=== PATIENT | female | born 1995 | race Caucasian/White ===

== ENCOUNTER 2016-07-28 23:58 | Emergency (ER) | payer OTHER ==
[2016-07-29] MEDS ORDERED: diphenhydrAMINE 50 MG/ML 1 ML VIAL IVP STA (01:25)
[2016-07-29] MEDS ORDERED: FAMOTIDINE 20 MG/2 ML VIAL IV STA (01:25)
[2016-07-29] MEDS ORDERED: methylPREDNISolone SOD SUCCI 125 MG/2 ML VIAL IV STA (01:25)
--- NOTE | 2016-07-29 02:32 | ED ---
General Adult HPI - General Chief complaint: Skin/Abscess/Foreign Body Stated complaint: Hives/FATIMAH Time Seen by Provider: 07/29/16 01:14 Source: patient, RN notes reviewed Mode of arrival: ambulatory Limitations: no limitations - History of Present Illness Initial comments: This is a 21-year-old female who presents with hives and rash that started last night. Patient states she noticed the itching and the bumps on her face right before she went to bed and these have gotten progressively worse. Patient also complains of some shortness of breath. Patient does not know what could've triggered this rash. Patient denies any new medication, new soaps, detergents or anything else new in her routine. Patient does admit to being a smoker. Patient currently has a nexplanon for control. Patient denies any known ALLERGIES. Patient denies any recent fever, chills, chest pain, abdominal pain , nausea/vomiting/diarrhea, back pain, numbness, tingling, hematuria, headache , or visual changes, or any other complaints. - Related Data Previous Rx's Medication Instructions Recorded Famotidine [Pepcid] 40 mg PO HS 3 Days 07/29/16 diphenhydrAMINE [Benadryl] 25 mg PO TID 3 Days 07/29/16 predniSONE [Deltasone] 20 mg PO DAILY 3 Days 07/29/16 Allergies Allergy/AdvReac Type Severity Reaction Status Date / Time No Known Allergies Allergy Verified 07/29/16 00:02 Review of Systems ROS Statement: Those systems with pertinent positive or pertinent negative responses have been documented in the HPI. ROS Other: All systems not noted in ROS Statement are negative. Past Medical History Past Medical History: GERD/Reflux History of Any Multi-Drug Resistant Organisms: None Reported Past Surgical History: Cholecystectomy Past Anesthesia/Blood Transfusion Reactions: No Reported Reaction Past Psychological History: No Psychological Hx Reported Smoking Status: Current every day smoker Past Alcohol Use History: Occasional Past Drug Use History: None Reported - Past Family History Father Family Medical History: Cancer General Exam - General Exam Comments Initial Comments: General: The patient is awake and alert, in no distress, and does not appear acutely ill. Eye: Pupils are equal, round and reactive to light, extra-ocular movements are intact. No nystagmus. There is normal conjunctiva bilaterally. No signs of icterus. Ears: TMs pink and pearly with intact cone of light bilaterally. Normal external ear canals Nose: Nasal turbinates pink and moist Mouth and throat: There are moist mucous membranes and no oral lesions. Neck: The neck is supple, there is no tenderness or JVD. Cardiovascular: There is a regular rate and rhythm. No murmur, rub or gallop is appreciated. Respiratory: Lungs with wheezes present throughout, respirations are non- labored, breath sounds are equal. No stridor, rales, or rhonchi. Musculoskeletal: Normal ROM, no tenderness. Strength 5/5. Sensation intact. Radial Pulses equal bilaterally 2+. Neurological: A&O x 3. CN II-XII intact, There are no obvious motor or sensory deficits. Coordination appears grossly intact. Speech is normal. Skin: There is an urticarial rash to the patient's face and neck. Skin is warm and dry. Psychiatric: Cooperative, appropriate mood & affect, normal judgment. Limitations: no limitations Course Vital Signs 07/29/16 00:00 Temperature 98.4 F Pulse Rate 90 Respiratory 20 Rate Blood Pressure 131/76 O2 Sat by Pulse 100 Oximetry Medical Decision Making - Medical Decision Making This is a 21-year-old female presents with hives and some mild shortness of breath. On physical exam Lungs with wheezes present throughout, respirations are non-labored, breath sounds are equal. No stridor, rales, or rhonchi. There is an urticarial rash to the patient's face and neck. Patient was given a dose of Solu-Medrol, Pepcid and Benadryl in the EC today to this patient's lungs are completely clear to auscultation bilaterally and there is no more wheezing. Patient states that her breathing symptoms had resolved. I discussed the patient will be sent home on a course of Benadryl, Pepcid and prednisone for the next 3 days. I discussed return parameters. Discussed that patient should follow up with PCP in one to 2 days or return to the [facility] for any worsening symptoms or for any further concerns. Patient was receptive to this plan and patient will be discharged home. Disposition Clinical Impression: Allergic reaction, Urticaria Disposition: HOME SELF-CARE Condition: Good Instructions: Urticaria (ED) Additional Instructions: Please use medication as discussed. Please follow-up with family doctor in the next 2 days of symptoms have not improved. Please return to emergency room if the symptoms increase or worsen or for any other concerns. Prescriptions: Famotidine [Pepcid] 40 mg PO HS 3 Days diphenhydrAMINE [Benadryl] 25 mg PO TID 3 Days predniSONE [Deltasone] 20 mg PO DAILY 3 Days Time of Disposition: 02:37
[2016-07-29 02:47] VITALS: BP 109/72; PULSE 74; RESP 16; TEMP 97.9
== END 2016-07-29 02:48 | disposition home or self-care (01) ==
LOC: EC 23:58
DX: T78.40XA Allergy, unspecified, initial encounter (principal); L50.9 Urticaria, unspecified; F17.200 Nicotine dependence, unspecified, uncomplicated
CPT/HCPCS: 99284; 96374; 96375 ×2; J1200; J2930

== ENCOUNTER → 2016-08-07 | Outpatient (CLI) | payer OTHER | END | disposition home or self-care (01) | LOC: LABWHC1 09:58 | PROVIDERS: ATTEND Obstetrics & Gynecology | DX: N91.2 Amenorrhea, unspecified (principal) | CPT/HCPCS: 36415; 84702 ==

== ENCOUNTER 2016-11-25 00:17 | Emergency (ER) | payer OTHER ==
[2016-11-25 00:23] VITALS: BP 128/81; PULSE 81; RESP 18; TEMP 99.1
--- NOTE | 2016-11-25 01:24 | ED ---
ENT HPI - General Chief complaint: ENT Stated complaint: sore throat Time Seen by Provider: 11/25/16 00:50 Source: patient, RN notes reviewed Mode of arrival: ambulatory Limitations: no limitations - History of Present Illness Initial comments: patient is a 21-year-old female presents to the emergency room for evaluation of throat pain. Patient states throat pain began a few hours ago. patient states she took [id number] cold medicine with no relief of symptoms. Patient states it hurts when she swallows. patient has any fevers or chills. Patient's headache or dizziness. Patient denies cough or congestion. Patient denies sick contacts. - Related Data Home Medications Medication Instructions Recorded Confirmed No Known Home Medications [No 11/25/16 11/25/16 Known Home Medications] Allergies Allergy/AdvReac Type Severity Reaction Status Date / Time No Known Allergies Allergy Verified 11/25/16 00:23 Review of Systems ROS Statement: Those systems with pertinent positive or pertinent negative responses have been documented in the HPI. ROS Other: All systems not noted in ROS Statement are negative. Past Medical History Past Medical History: GERD/Reflux History of Any Multi-Drug Resistant Organisms: None Reported Past Surgical History: Cholecystectomy Past Anesthesia/Blood Transfusion Reactions: No Reported Reaction Past Psychological History: No Psychological Hx Reported Smoking Status: Former smoker Past Alcohol Use History: Rare Past Drug Use History: None Reported - Past Family History Father Family Medical History: Cancer General Exam - General Exam Comments Initial Comments: Sitting in exam room, no acute distress. Limitations: no limitations General appearance: alert, in no apparent distress Head exam: Present: atraumatic, normocephalic, normal inspection Eye exam: Present: normal appearance Expanded Mouth exam: Present: normal external inspection Teeth exam: Present: normal inspection Throat exam: tonsillar erythema Neck exam: Present: normal inspection Respiratory exam: Present: normal lung sounds bilaterally. Absent: respiratory distress Cardiovascular Exam: Present: regular rate, normal rhythm, normal heart sounds Extremities exam: Present: normal inspection Back exam: Present: normal inspection Neurological exam: Present: alert, oriented X3, CN II-XII intact, normal gait Psychiatric exam: Present: normal affect, normal mood Skin exam: Present: warm, dry, intact, normal color. Absent: rash Course Vital Signs 11/25/16 00:20 Temperature 99.1 F Pulse Rate 81 Respiratory 18 Rate Blood Pressure 128/81 O2 Sat by Pulse 98 Oximetry Medical Decision Making - Medical Decision Making Patient is a 21-year-old female presents emergency room for violation of throat pain. Rapid strep negative. Patient's symptoms viral pharyngitis. Advised patient take Tylenol or Motrin at home and take [id number] medications. Patient states she understands everything that was discussed with her. Return parameters discussed. Discussed with Dr. Altman. - Lab Data Lab Results 11/25/16 Range/Units 00:25 Group A Strep Rapid Negative (Negative) Disposition Clinical Impression: Acute viral pharyngitis Disposition: HOME SELF-CARE Condition: Good Instructions: Pharyngitis (ED) Additional Instructions: Take Tylenol or Motrin as needed for pain. Saltwater gargles. Please follow up with primary care provider in 1-2 days. If any new symptom arises or symptoms worsen, return to ER as soon as possible. Referrals: Sami Foster DO [Primary Care Provider] - 1-2 days Time of Disposition: 01:25
== END 2016-11-25 01:46 | disposition home or self-care (01) ==
LOC: EC 00:17
DX: J02.8 Acute pharyngitis due to other specified organisms (principal); Z87.891 Personal history of nicotine dependence
CPT/HCPCS: 87081; 87430; 99282

== ENCOUNTER 2017-01-25 04:59 | Emergency (ER) | payer OTHER ==
--- NOTE | 2017-01-25 05:09 | ED ---
General Adult HPI - General Source: RN notes reviewed <Paul Taylor - Last Filed: 01/25/17 05:45> <Paul Massey - Last Filed: 01/25/17 08:05> - General Stated complaint: abd pain Time Seen by Provider: 01/25/17 05:00 - History of Present Illness Initial comments: This is a 21-year-old female presents emergency Department complaining of vaginal bleeding. Patient states she's had a change in her control but 3 months ago. Patient states for about 2 months she didn't have any menstruation. She states since then she has had occasional times when she has sudden onset of bleeding and then it subsides. Patient states this evening she had sexual intercourse and shortly thereafter she started having some pelvic pain and shortly thereafter she had vaginal bleeding. Patient states the bleeding has almost completely subsided at this point and the pain is gotten better but hurts more on the left side. Patient denies any fever or chills. Patient states she has not seen her OB since the change in control (Paul Taylor) - Related Data Home Medications Medication Instructions Recorded Confirmed Aspirin/Acetaminophen/Caffeine 1 tab PO Q12HR 01/25/17 01/25/17 [Excedrin Migraine Caplet] Etonogestrel/Ethinyl Estradiol 1 applic IU DAILY 01/25/17 01/25/17 [Nuvaring Vaginal Ring] Allergies Allergy/AdvReac Type Severity Reaction Status Date / Time No Known Allergies Allergy Verified 01/25/17 05:07 Review of Systems ROS Other: All systems not noted in ROS Statement are negative. <Paul Taylor - Last Filed: 01/25/17 05:45> ROS Other: All systems not noted in ROS Statement are negative. <Paul Massey - Last Filed: 01/25/17 08:05> ROS Statement: Those systems with pertinent positive or pertinent negative responses have been documented in the HPI. Past Medical History Past Medical History: GERD/Reflux History of Any Multi-Drug Resistant Organisms: None Reported Past Surgical History: Cholecystectomy Past Anesthesia/Blood Transfusion Reactions: No Reported Reaction Past Psychological History: No Psychological Hx Reported Smoking Status: Former smoker Past Alcohol Use History: Rare Past Drug Use History: None Reported - Past Family History Father Family Medical History: Cancer <Paul Taylor - Last Filed: 01/25/17 05:45> General Exam <Paul Taylor - Last Filed: 01/25/17 05:45> <Paul Massey - Last Filed: 01/25/17 08:05> - General Exam Comments Initial Comments: GENERAL Patient is well-developed and well-nourished. Patient is in mild distress. EYES Patient's pupils are equal and round. Extraocular motion is intact Abdominal pain Patient some mild tenderness on the floor quadrant SKIN Unremarkable NEURO The patient is alert and oriented 3 PYSCH Patient has normal interpersonal interactions. Genitalia On external exam there was no trauma noted. On speculum exam patient has some scant blood in the vaginal vault but no active bleeding and no trauma noted. ( Paul Taylor) Medical Decision Making <Paul Taylor - Last Filed: 01/25/17 05:45> <Paul Massey - Last Filed: 01/25/17 08:05> - Medical Decision Making Dr. Massey will be taking over the care of the patient at 7 AM (Paul Taylor ) - Lab Data Lab Results 01/25/17 Range/Units 05:42 Urine Color Yellow Urine Appearance Clear (Clear) Urine pH 6.0 (5.0-8.0) Ur Specific [place] 1.024 (1.001-1.035) Urine Protein Trace H (Negative) Urine Glucose (UA) Negative (Negative) Urine Ketones Negative (Negative) Urine Blood Small H (Negative) Urine Nitrite Negative (Negative) Urine Bilirubin Negative (Negative) Urine Urobilinogen 2.0 (<2.0) mg/dL Ur Leukocyte Esterase Trace H (Negative) Urine RBC 6 H (0-5) /hpf Urine WBC 6 H (0-5) /hpf Ur Squamous Epith Cells 2 (0-4) /hpf Urine Mucus Many H (None) /hpf Disposition <Paul Taylor - Last Filed: 01/25/17 05:45> <Paul Massey - Last Filed: 01/25/17 08:05> Clinical Impression: Dysfunctional uterine bleeding Disposition: HOME SELF-CARE Condition: Good Instructions: Menstruation (ED) Referrals: Sami Foster DO [Primary Care Provider] - 1-2 days
[2017-01-25] MEDS ORDERED: KETOROLAC 60 MG/2 ML VIAL IM STA (05:30)
[2017-01-25] MEDS ORDERED: ACETAMINOPHEN TAB 500 MG TAB PO STA (05:30)
[2017-01-25 05:58] LABS: Appearance,Urine Clear (Clear); Bilirubin,Urine Negative (Negative); Glucose,Urine (UA) Negative (Negative); Ketones,Urine Negative (Negative); Leukocyte Esterase,Urine Trace (Negative); Mucus,Urine Many /hpf; Nitrite,Urine Negative (Negative); Particle Count 4743; Protein,Urine Trace (Negative); RBC,Urine 6 /hpf (0-5); Specific Gravity,Urine 1.024 (1.001-1.035); Squamous Epithelial Cell,Urine 2 /hpf (0-4); UA Billing (MACRO vs. MICRO) MICRO; WBC,Urine 6 /hpf (0-5)
--- NOTE | 2017-01-25 07:05 | US ---
EXAM: US Pelvis Complete, Transvaginal CLINICAL HISTORY: Cramping and spotting. Patient has a Nuva ring. TECHNIQUE: Real-time transvaginal pelvic ultrasound (complete) with image documentation. Transvaginal imaging was used for better evaluation of the endometrium and adnexa. COMPARISON: No relevant prior studies available. FINDINGS: Uterus/cervix: The uterus is anteverted measuring 9.0 x 5.8 x 5.0 cm. The endometrium measures up to 5 mm. No myometrial mass. Right ovary: The right ovary measures 1.6 x 1.6 x 1.1 cm. Left ovary: The left ovary measures 2.1 x 2.0 x 1.2 cm. Free fluid: No free fluid within the pelvis. IMPRESSION: No acute findings.
[2017-01-25 07:22] VITALS: RESP 18
[2017-01-25 08:18] VITALS: BP 111/62; PULSE 70; TEMP 98.2
== END 2017-01-25 08:17 | disposition home or self-care (01) ==
LOC: EC 04:59
DX: N93.8 Other specified abnormal uterine and vaginal bleeding (principal); Z87.891 Personal history of nicotine dependence; Z79.3 Long term (current) use of hormonal contraceptives; Z79.82 Long term (current) use of aspirin; Z79.899 Other long term (current) drug therapy
CPT/HCPCS: 81001; 93975; 76830; 99284; 96372; J1885

== ENCOUNTER 2017-03-16 18:04 | Emergency (ER) | payer OTHER ==
[2017-03-16] MEDS ORDERED: SODIUM CHLORIDE 0.9% 500 ML IV STA (18:14)
[2017-03-16] MEDS ORDERED: SODIUM CHLORIDE 0.9% 1,000 ML IV STA (18:14)
[2017-03-16] MEDS ORDERED: ONDANSETRON 4 MG/2 ML VIAL IVP STA ×2 (18:14→19:32)
[2017-03-16] MEDS ORDERED: FAMOTIDINE 20 MG/2 ML VIAL IV STA (18:14)
--- NOTE | 2017-03-16 18:17 | ED ---
Nausea/Vomiting/Diarrhea HPI - General Chief complaint: Nausea/Vomiting/Diarrhea Stated complaint: vomiting Time Seen by Provider: 03/16/17 18:10 Source: patient, RN notes reviewed Mode of arrival: ambulatory Limitations: no limitations - History of Present Illness Initial comments: 22-year-old female presents emergency Department chief complaint of nausea vomiting that started yesterday. Patient states she felt like she has some abdominal cramping which return to her stomach feels upset. Patient states she' s been vomiting on and off since yesterday. She denies any fever, chills, night sweats. Patient states that she primarily has epigastric pain this time. She does admit to a prior cholecystectomy proximally 3 years ago does not remember surgeon name. Patient denies any sick contacts with similar symptoms. Denies any dysuria, hematuria increased urination. Denies any flank pain. She has no chest pain or shortness of breath no headache or dizziness. - Related Data Previous Rx's Medication Instructions Recorded Acetaminophen-Codeine 300-30mg 1 tab PO Q4H PRN #10 tablet 03/16/17 [Tylenol #3] Ondansetron Odt [Zofran Odt] 4 mg PO Q8HR PRN #10 tab 03/16/17 Allergies Allergy/AdvReac Type Severity Reaction Status Date / Time No Known Allergies Allergy Verified 03/16/17 18:15 Review of Systems ROS Statement: Those systems with pertinent positive or pertinent negative responses have been documented in the HPI. ROS Other: All systems not noted in ROS Statement are negative. Past Medical History Past Medical History: GERD/Reflux History of Any Multi-Drug Resistant Organisms: None Reported Past Surgical History: Cholecystectomy Past Anesthesia/Blood Transfusion Reactions: No Reported Reaction Past Psychological History: No Psychological Hx Reported Smoking Status: Current every day smoker Past Alcohol Use History: Occasional Past Drug Use History: Marijuana - Past Family History Father Family Medical History: Cancer General Exam Limitations: no limitations General appearance: alert, in no apparent distress ENT exam: Present: normal oropharynx, mucous membranes moist Neck exam: Present: normal inspection. Absent: tenderness, meningismus, lymphadenopathy Respiratory exam: Present: normal lung sounds bilaterally. Absent: respiratory distress, wheezes, rales, rhonchi, stridor Cardiovascular Exam: Present: regular rate, normal rhythm, normal heart sounds. Absent: systolic murmur, diastolic murmur, rubs, gallop, clicks GI/Abdominal exam: Present: soft, tenderness (Mild epigastric), normal bowel sounds. Absent: distended, guarding, rebound, rigid Back exam: Absent: CVA tenderness (R), CVA tenderness (L) Skin exam: Present: warm, dry, intact, normal color. Absent: rash Course Vital Signs 03/16/17 18:07 Temperature 98.5 F Pulse Rate 111 H Respiratory 20 Rate Blood Pressure 116/69 O2 Sat by Pulse 98 Oximetry Medical Decision Making - Medical Decision Making 22-year-old female presents emergency department nausea vomiting mild abdominal cramping. Patient whether does reveal mild elevation of her lipase. Patient does have some epigastric and midabdominal tenderness. Patient has mild pancreatitis at this time. She's had a prior cholecystectomy of LFTs are within normal limits. Patient is improved after Zofran and IV fluids. Patient be discharged on Zofran advised to stick to clear liquid diet and increase oral intake as tolerated after 24 hours. Return parameters were discussed. - Lab Data Result diagrams: 03/16/17 18:32 03/16/17 18:32 Lab Results 03/16/17 03/16/17 03/16/17 Range/Units 18:32 18:32 18:32 WBC 9.2 (3.8-10.6) k/uL RBC 5.30 (3.80-5.40) m/uL Hgb 15.6 (11.4-16.0) gm/dL Hct 47.5 H (34.0-46.0) % MCV 89.6 (80.0-100.0) fL MCH 29.3 (25.0-35.0) pg MCHC 32.8 (31.0-37.0) g/dL RDW 14.1 (11.5-15.5) % Plt Count 236 (150-450) k/uL Neutrophils % 82 % Lymphocytes % 11 % Monocytes % 4 % Eosinophils % 2 % Basophils % 0 % Neutrophils # 7.5 (1.3-7.7) k/uL Lymphocytes # 1.0 (1.0-4.8) k/uL Monocytes # 0.4 (0-1.0) k/uL Eosinophils # 0.2 (0-0.7) k/uL Basophils # 0.0 (0-0.2) k/uL Sodium 139 (137-145) mmol/L Potassium 3.9 (3.5-5.1) mmol/L Chloride 105 (98-107) mmol/L Carbon Dioxide 22 (22-30) mmol/L Anion Gap 12 mmol/L BUN 9 (7-17) mg/dL Creatinine 0.75 (0.52-1.04) mg/dL Est GFR (MDRD) Af Amer >60 (>60 ml/min/1.73 sqM) Est GFR (MDRD) Non-Af >60 (>60 ml/min/1.73 sqM) Glucose 87 (74-99) mg/dL Calcium 9.2 (8.4-10.2) mg/dL Total Bilirubin 0.6 (0.2-1.3) mg/dL AST 14 (14-36) U/L ALT 33 (9-52) U/L Alkaline Phosphatase 51 (38-126) U/L Total Protein 7.9 (6.3-8.2) g/dL Albumin 4.8 (3.5-5.0) g/dL Amylase 47 (30-110) U/L Lipase 412 H (23-300) U/L Urine Color Urine Appearance (Clear) Urine pH (5.0-8.0) Ur Specific [place] (1.001-1.035) Urine Protein (Negative) Urine Glucose (UA) (Negative) Urine Ketones (Negative) Urine Blood (Negative) Urine Nitrite (Negative) Urine Bilirubin (Negative) Urine Urobilinogen (<2.0) mg/dL Ur Leukocyte Esterase (Negative) Urine RBC (0-5) /hpf Urine WBC (0-5) /hpf Ur Squamous Epith Cells (0-4) /hpf Urine Bacteria (None) /hpf Urine Mucus (None) /hpf Urine HCG, Qual Not Detected (Not Detectd) 03/16/17 Range/Units 18:32 WBC (3.8-10.6) k/uL RBC (3.80-5.40) m/uL Hgb (11.4-16.0) gm/dL Hct (34.0-46.0) % MCV (80.0-100.0) fL MCH (25.0-35.0) pg MCHC (31.0-37.0) g/dL RDW (11.5-15.5) % Plt Count (150-450) k/uL Neutrophils % % Lymphocytes % % Monocytes % % Eosinophils % % Basophils % % Neutrophils # (1.3-7.7) k/uL Lymphocytes # (1.0-4.8) k/uL Monocytes # (0-1.0) k/uL Eosinophils # (0-0.7) k/uL Basophils # (0-0.2) k/uL Sodium (137-145) mmol/L Potassium (3.5-5.1) mmol/L Chloride (98-107) mmol/L Carbon Dioxide (22-30) mmol/L Anion Gap mmol/L BUN (7-17) mg/dL Creatinine (0.52-1.04) mg/dL Est GFR (MDRD) Af Amer (>60 ml/min/1.73 sqM) Est GFR (MDRD) Non-Af (>60 ml/min/1.73 sqM) Glucose (74-99) mg/dL Calcium (8.4-10.2) mg/dL Total Bilirubin (0.2-1.3) mg/dL AST (14-36) U/L ALT (9-52) U/L Alkaline Phosphatase (38-126) U/L Total Protein (6.3-8.2) g/dL Albumin (3.5-5.0) g/dL Amylase (30-110) U/L Lipase (23-300) U/L Urine Color Yellow Urine Appearance Cloudy H (Clear) Urine pH 7.0 (5.0-8.0) Ur Specific [place] 1.008 (1.001-1.035) Urine Protein Negative (Negative) Urine Glucose (UA) Negative (Negative) Urine Ketones Negative (Negative) Urine Blood Negative (Negative) Urine Nitrite Negative (Negative) Urine Bilirubin Negative (Negative) Urine Urobilinogen <2.0 (<2.0) mg/dL Ur Leukocyte Esterase Moderate H (Negative) Urine RBC 1 (0-5) /hpf Urine WBC 3 (0-5) /hpf Ur Squamous Epith Cells 12 H (0-4) /hpf Urine Bacteria Occasional H (None) /hpf Urine Mucus Rare H (None) /hpf Urine HCG, Qual (Not Detectd) Disposition Clinical Impression: Nausea & vomiting, Pancreatitis, acute Disposition: HOME SELF-CARE Condition: Stable Instructions: Acute Nausea and Vomiting (ED) Additional Instructions: Please return to the Emergency Department if symptoms worsen or any other concerns. Prescriptions: Acetaminophen-Codeine 300-30mg [Tylenol #3] 1 tab PO Q4H PRN #10 tablet PRN Reason: pain Ondansetron Odt [Zofran Odt] 4 mg PO Q8HR PRN #10 tab PRN Reason: Nausea Referrals: Sami Foster DO [Primary Care Provider] - 1-2 days Time of Disposition: 19:30
[2017-03-16 18:55] LABS: Basophils % (A) 0 %; CH 30.7; CHCM 34.4; Eosinophils # (A) 0.2 k/uL (0-0.7); Eosinophils % (A) 2 %; HCT 47.5 % (34.0-46.0); HDW 2.18; HGB 15.6 gm/dL (11.4-16.0); Luc # (Auto) 0.08; Luc % (Auto) 1; Lymphocytes % (A) 11 %; MCH 29.3 pg (25.0-35.0); MCHC 32.8 g/dL (31.0-37.0); MCV 89.6 fL (80.0-100.0); Mean Platelet Volume 7.5; Monocytes # (A) 0.4 k/uL (0-1.0); Monocytes % (A) 4 %; Neutrophils # (A) 7.5 k/uL (1.3-7.7); Neutrophils % (A) 82 %; RDW 14.1 % (11.5-15.5); WBC 9.2 k/uL (3.8-10.6)
[2017-03-16 19:01] LABS: Appearance,Urine Cloudy (Clear); Bacteria,Urine Occasional /hpf; Bilirubin,Urine Negative (Negative); Glucose,Urine (UA) Negative (Negative); Ketones,Urine Negative (Negative); Leukocyte Esterase,Urine Moderate (Negative); Mucus,Urine Rare /hpf; Nitrite,Urine Negative (Negative); Particle Count 3454; Protein,Urine Negative (Negative); RBC,Urine 1 /hpf (0-5); Specific Gravity,Urine 1.008 (1.001-1.035); Squamous Epithelial Cell,Urine 12 /hpf (0-4); UA Billing (MACRO vs. MICRO) MICRO; Urobilinogen,Urine <2.0 mg/dL (<2.0); WBC,Urine 3 /hpf (0-5)
[2017-03-16 19:08] LABS: ALT 33 U/L (9-52); AST 14 U/L (14-36); Alkaline Phosphatase 51 U/L (38-126); Amylase 47 U/L (30-110); Anion Gap 12 mmol/L; Blood Urea Nitrogen 9 mg/dL (7-17); Calcium 9.2 mg/dL (8.4-10.2); Carbon Dioxide 22 mmol/L (22-30); Chloride 105 mmol/L (98-107); Glucose 87 mg/dL (74-99); Non-African American GFR(MDRD) >60 (>60 ml/min/1.73 sqM); Potassium 3.9 mmol/L (3.5-5.1); Sodium 139 mmol/L (137-145); Total Bilirubin 0.6 mg/dL (0.2-1.3); Total Protein 7.9 g/dL (6.3-8.2)
--- NOTE | 2017-03-16 19:23 | XR ---
Abdomen HISTORY: Abdomen pain View of the abdomen on 2 images correlated to previous exam 05/09/2014 Pneumoperitoneum has resolved. Lung bases are clear. Surgical clips present in the right upper quadra nt. No bowel obstruction. No pathologic calcification evident. IMPRESSION: Postop changes.
[2017-03-16 19:38] VITALS: BP 115/57; PULSE 80; RESP 15; TEMP 98.9
== END 2017-03-16 19:42 | disposition home or self-care (01) ==
LOC: EC 18:04
DX: K85.90 Acute pancreatitis without necrosis or infection, unspecified (principal); F17.200 Nicotine dependence, unspecified, uncomplicated; Z90.49 Acquired absence of other specified parts of digestive tract
CPT/HCPCS: 36415; 80053; 82150; 83690; 85025; 81001; 81025; 74000; 99284; 96374; 96375; 96376; 96361; J2405

== ENCOUNTER 2017-08-19 12:48 | Emergency (ER) | payer OTHER ==
[2017-08-19 12:51] VITALS: BP 127/69; PULSE 107; RESP 18; TEMP 97.5
--- NOTE | 2017-08-19 14:50 | ED ---
General Adult HPI - General Chief complaint: Wound/Laceration Stated complaint: Lac on Heel Time Seen by Provider: 08/19/17 14:02 Source: patient, RN notes reviewed Mode of arrival: wheelchair Limitations: no limitations - History of Present Illness Initial comments: Patient's a 22-year-old female who presents emergency room today with chief complaint of laceration to the back of the left heel. She states she was kicking some snow and ice off of her car when her foot got caught shoe came off causing a laceration to the back of the left heel. She states her tetanus is up -to-date. She denies any other complaints or symptoms. Patient denies any recent fever, chills, shortness of breath, chest pain, back pain, abdominal pain , nausea or vomiting, numbness or tingling, headaches or visual changes, or any other complaints. - Related Data Previous Rx's Medication Instructions Recorded Acetaminophen-Codeine 300-30mg 1 tab PO Q4H PRN #10 tablet 03/16/17 [Tylenol #3] Ondansetron Odt [Zofran Odt] 4 mg PO Q8HR PRN #10 tab 03/16/17 Allergies Allergy/AdvReac Type Severity Reaction Status Date / Time No Known Allergies Allergy Verified 08/19/17 12:51 Review of Systems ROS Statement: Those systems with pertinent positive or pertinent negative responses have been documented in the HPI. ROS Other: All systems not noted in ROS Statement are negative. Past Medical History Past Medical History: GERD/Reflux History of Any Multi-Drug Resistant Organisms: None Reported Past Surgical History: Cholecystectomy Past Anesthesia/Blood Transfusion Reactions: No Reported Reaction Past Psychological History: No Psychological Hx Reported Smoking Status: Current every day smoker Past Alcohol Use History: Occasional Past Drug Use History: Marijuana - Past Family History Father Family Medical History: Cancer General Exam - General Exam Comments Initial Comments: General: The patient is awake and alert, in no distress, and does not appear acutely ill. Neck: The neck is supple, there is no tenderness or JVD. Cardiovascular: There is a regular rate and rhythm. No murmur, rub or gallop is appreciated. Respiratory: Lungs are clear to auscultation, respirations are non-labored, breath sounds are equal. No wheezes, stridor, rales, or rhonchi. Musculoskeletal: Full range motion. Sensation intact with pulses equal bilaterally 2+ per strength is 5/5. Neurological: A&O x 3. CN II-XII intact, There are no obvious motor or sensory deficits. Coordination appears grossly intact. Speech is normal. Skin: Laceration to the posterior aspect of the left heel measures approximately 1 cm in total length. No deep tissue involvement. Psychiatric: Normal mood and affect. Limitations: no limitations Course Vital Signs 08/19/17 12:48 Temperature 97.5 F L Pulse Rate 107 H Respiratory 18 Rate Blood Pressure 127/69 O2 Sat by Pulse 100 Oximetry Procedures - Procedures Initial comment: 1 cm linear laceration running horizontally to the posterior aspect of the left heel. The skin was anesthetized with 1% lidocaine. The laceration was then cleansed with and irrigated with normal saline. The wound was inspected, and there was no evidence of injury to deep structures. No foreign body was noted in the wound. A total of 2skin skin sutures were placed utilizing 3-0 nylon. Medical Decision Making - Medical Decision Making Patient's laceration was prepped and cleaned here in the emergency room 2 sutures placed. Patient's tetanus up-to-date. Will be discharged home advised return for any other concerns. Disposition Clinical Impression: Laceration Disposition: HOME SELF-CARE Condition: Good Instructions: Laceration (ED) Additional Instructions: Please return to the emergency room in 8-10 days to have sutures removed. Please watch for any signs of infection which may include increased pain, swelling, redness, fever or chills. Please return to emergency room for any signs of infection do occur. Please use clean soap and water over the area to prevent scabbing over your stitches. Please leave wound covered for the first 24-48 hours and then leave wound open to air. Please return to the emergency room for any other concerns. Referrals: Sami Foster DO [Primary Care Provider] - 1-2 days Time of Disposition: 14:49
== END 2017-08-19 14:57 | disposition home or self-care (01) ==
LOC: EC 12:48
DX: S91.312A Laceration without foreign body, left foot, initial encounter (principal); F17.200 Nicotine dependence, unspecified, uncomplicated; W22.8XXA Striking against or struck by other objects, initial encounter; Y93.89 Activity, other specified; Y92.89 Other specified places as the place of occurrence of the external cause
CPT/HCPCS: 12001; 99282

== ENCOUNTER 2021-10-27 18:07 | Emergency (ER) | payer OTHER ==
[2021-10-27] MEDS ORDERED: ACETAMINOPHEN TAB 500 MG TAB PO STA ×2 (19:03→19:42)
[2021-10-27] MEDS ORDERED: AMOXIC-POT CLAV 875-125MG 1 EACH TAB PO STA ×2 (19:04→19:42)
--- NOTE | 2021-10-27 20:26 | ED ---
Animal Bite HPI - General Chief Complaint: Animal Bite Stated Complaint: Rt Toe Injury Time Seen by Provider: 10/27/21 19:06 Source: patient, RN notes reviewed Mode of arrival: wheelchair Limitations: no limitations - History of Present Illness Initial Comments: This patient presents immersed back complaining of pain to her right great toe. Patient states that she went to kick a soccer ball when she is playing with her dog. Dog missed the ball and ended up biting her right great toe. She has a very superficial abrasion to the dorsum of the toe. Patient also has a contusion with ecchymosis. Patient complaining of pain to the area which is exacerbated by palpation and movement. Patient is able to ambulate. Patient has no immunosuppression. Up-to-date on immunizations. No headache, no fever or chills, no changes in vision or hearing, no sore throat or difficulty with speech, no neck pain, no chest pain or shortness of breath, no abdominal pain, no nausea or vomiting, no changes in urination or bowel movements, no numbness or tingling, no skin rashes or lesions. MD Complaint: animal bite - Related Data Previous Rx's Medication Instructions Recorded Acetaminophen-Codeine 300-30mg 1 tab PO Q4H PRN #10 tablet 03/16/17 [Tylenol #3] Ondansetron Odt [Zofran Odt] 4 mg PO Q8HR PRN #10 tab 03/16/17 Acetaminophen [Tylenol] 500 mg PO Q4-6H PRN #24 tab 10/27/21 Amoxicillin/Potassium Clav 1 each PO Q12HR #14 tab 10/27/21 [Augmentin 875-125 Tablet] Allergies Allergy/AdvReac Type Severity Reaction Status Date / Time No Known Allergies Allergy Verified 10/27/21 18:41 Review of Systems ROS Statement: Those systems with pertinent positive or pertinent negative responses have been documented in the HPI. ROS Other: All systems not noted in ROS Statement are negative. Past Medical History Past Medical History: GERD/Reflux History of Any Multi-Drug Resistant Organisms: None Reported Past Surgical History: Cholecystectomy Past Anesthesia/Blood Transfusion Reactions: No Reported Reaction Past Psychological History: No Psychological Hx Reported Smoking Status: Current every day smoker Past Alcohol Use History: Occasional Past Drug Use History: Marijuana - Past Family History Father Family Medical History: Cancer General Exam Limitations: no limitations General appearance: alert, in no apparent distress Head exam: Present: atraumatic, normocephalic, normal inspection Eye exam: Present: normal appearance, PERRL, EOMI. Absent: scleral icterus, conjunctival injection, periorbital swelling ENT exam: Present: normal exam, normal oropharynx, mucous membranes moist, TM's normal bilaterally, normal external ear exam. Absent: mucous membranes dry Neck exam: Present: normal inspection, full ROM. Absent: tenderness, meningismus, lymphadenopathy Respiratory exam: Present: normal lung sounds bilaterally. Absent: respiratory distress, wheezes, rales, rhonchi, stridor Cardiovascular Exam: Present: regular rate, normal rhythm, normal heart sounds. Absent: systolic murmur, diastolic murmur, rubs, gallop, clicks GI/Abdominal exam: Present: soft, normal bowel sounds. Absent: distended, tenderness, guarding, rebound, rigid Extremities exam: Present: normal inspection, full ROM, tenderness (Patient has tenderness to the dorsum of the right great toe. There is overlying ecchymosis. No crepitus. Essentially full range of motion with discomfort.), normal capillary refill, other (No evidence of foreign body or infectious process. This is a very superficial abrasion affecting only the epidermis. However there was minimal bleeding which is now halted.). Absent: pedal edema, joint swelling, calf tenderness Back exam: Present: normal inspection Neurological exam: Present: alert, oriented X3, CN II-XII intact Psychiatric exam: Present: normal affect, normal mood Skin exam: Present: warm, dry, intact, normal color. Absent: rash Course Vital Signs 10/27/21 18:38 Temperature 98.1 F Pulse Rate 99 Respiratory 16 Rate Blood Pressure 108/64 O2 Sat by Pulse 98 Oximetry Procedures - Smoking Cessation Time Spent Discussing Smoking Cessation w/Patient (Minutes): 5 Patient Acknowledges Need for Cessation: Yes Disposition Clinical Impression: Abrasion, right great toe, initial encounter, Contusion of great toe, right, Dog bite, Cigarette smoker Narrative: Dog bite, right great toe, superficial Disposition: HOME SELF-CARE Condition: Good Instructions (If sedation given, give patient instructions): Animal Bite (ED), Abrasion (ED), Foot Contusion (ED), How to Stop Smoking (ED) Additional Instructions: Make sure you CIGARETTE SMOKING. TAKE TYLENOL DIRECTED ON THE [id number] BOTTLE FOR PAIN CONTROL. ELEVATE THE FOOT. WASH THE AREA DAILY WITH WARM SOAP AND WATER. TAKE THE ANTIBIOTICS DIRECTED. WITH A BAND- AID. CONTACT YOUR ELECTRIC WELL LOGGING OPERATOR FOR FURTHER GUIDANCE. YOU CAN GET THE X-RAY IF NEEDED DISCUSSED. HOWEVER THIS IS SOMEWHAT OF RADIATION EXPOSURE. Follow-up with your regular physician as directed. Return to the ER immediately if any symptoms worsen, new symptoms arise, or any other problems develop. Is patient prescribed a controlled substance at d/c from ED?: No Referrals: Sami Foster DO [Primary Care Provider] - 1-2 days Time of Disposition: 19:08
[2021-10-27 20:28] VITALS: BP 108/64; PULSE 99; RESP 16; TEMP 98.1
== END 2021-10-27 19:41 | disposition home or self-care (01) ==
LOC: EC 18:07
DX: S90.111A Contusion of right great toe without damage to nail, initial encounter (principal); K21.9 Gastro-esophageal reflux disease without esophagitis; F17.210 Nicotine dependence, cigarettes, uncomplicated; F12.90 Cannabis use, unspecified, uncomplicated; Z79.899 Other long term (current) drug therapy; W54.0XXA Bitten by dog, initial encounter
CPT/HCPCS: 99283

== ENCOUNTER 2023-07-10 13:21 | Emergency (ER) | payer OTHER ==
[2023-07-10 13:42] VITALS: BP 115/66; PULSE 92; RESP 16; TEMP 98.4
--- NOTE | 2023-07-10 13:43 | ED ---
ENT HPI - General Source: patient, RN notes reviewed Mode of arrival: ambulatory Limitations: no limitations - History of Present Illness MD complaint: sore throat <Susi Joshi - Last Filed: 07/10/23 13:41> <Paul Taylor - Last Filed: 07/10/23 14:37> - General Chief complaint: ENT Stated complaint: ENT Time Seen by Provider: 07/10/23 13:41 - History of Present Illness Initial comments: This is a 28 year old female who presents to the emergency department for a sore throat and body aches for 1-2 days. Denies fevers, chills, chest pain, FATIMAH, coughing, or congestion. She is a daily smoker but denies any respiratory illnesses such as asthma. (Susi Joshi) This is a 28-year-old female presents emergency Department complaining of a sore throat last few days. Patient states she has had no fever chills but the sore throat is significant. Patient also states she has some pressure on her ears occasionally. Patient denies any difficulty breathing patient denies any chest pain palpitations abdominal pain patient denies nausea vomiting or diarrhea. Patient states she also is been a little bit fatigued over this period of time. (Paul Taylor) - Related Data Previous Rx's Medication Instructions Recorded Acetaminophen-Codeine 300-30mg 1 tab PO Q4H PRN #10 tablet 03/16/17 [Tylenol #3] Ondansetron Odt [Zofran Odt] 4 mg PO Q8HR PRN #10 tab 03/16/17 Acetaminophen [Tylenol] 500 mg PO Q4-6H PRN #24 tab 10/27/21 Amoxicillin/Potassium Clav 1 each PO Q12HR #14 tab 10/27/21 [Augmentin 875-125 Tablet] Amoxicillin 500 mg PO Q8H #30 capsule 07/10/23 Allergies Allergy/AdvReac Type Severity Reaction Status Date / Time No Known Allergies Allergy Verified 07/10/23 13:34 Review of Systems ROS Other: All systems not noted in ROS Statement are negative. <Susi Joshi - Last Filed: 07/10/23 13:41> ROS Other: All systems not noted in ROS Statement are negative. <Paul Taylor - Last Filed: 07/10/23 14:37> ROS Statement: Those systems with pertinent positive or pertinent negative responses have been documented in the HPI. Past Medical History Past Medical History: GERD/Reflux History of Any Multi-Drug Resistant Organisms: None Reported Past Surgical History: Cholecystectomy Past Anesthesia/Blood Transfusion Reactions: No Reported Reaction Past Psychological History: No Psychological Hx Reported Smoking Status: Current every day smoker Past Alcohol Use History: Occasional Past Drug Use History: Marijuana - Past Family History Father Family Medical History: Cancer <Susi Joshi - Last Filed: 07/10/23 13:41> General Exam Limitations: no limitations <Susi Joshi - Last Filed: 07/10/23 13:41> <Paul Taylor - Last Filed: 07/10/23 14:37> - General Exam Comments Initial Comments: Visual Physical Exam Vital signs reviewed General: Well-appearing, nontoxic, no acute distress. Head: Normocephalic, atraumatic Eyes: PERRLA, EOMI ENT: Airway patent Chest: Nonlabored breathing Skin: No visual rash, normal skin tone Neuro: Alert and oriented 3 Musculoskeletal: No gross abnormalities (Susi Joshi) GENERAL: Patient is well-developed and well-nourished. Patient is nontoxic and well- hydrated and is in mild distress. ENT: Neck is soft and supple. No significant lymphadenopathy is noted. Oropharynx is erythematous and swollen Moist mucous membranes. Neck has full range of motion without eliciting any pain. There is no thyroid enlargement and no masses were felt. EYES: The sclera were anicteric and conjunctiva were pink and moist. Extraocular movements were intact and pupils were equal round and reactive to light. Eyelid s were unremarkable. PULMONARY: Unlabored respirations. Good breath sounds bilaterally. No audible rales rhonchi or wheezing was noted. CARDIOVASCULAR: There is a regular rate and rhythm without any murmurs gallops or rubs ABDOMEN: Soft and nontender with normal bowel sounds. SKIN: Skin is clear with no lesions or rashes and otherwise unremarkable. NEUROLOGIC: Patient is alert and oriented x3. Cranial nerves II through XII are grossly intact. Motor and sensory are also intact. Normal speech, volume and content. Symmetrical smile. MUSCULOSKELETAL: Normal extremities with adequate strength and full range of motion. LYMPHATICS: She has anterior lymph nodes PSYCHIATRIC: Normal psychiatric evaluation. (Paul Tyalor) Course Vital Signs 07/10/23 13:32 Temperature 98.4 F Pulse Rate 92 Respiratory 16 Rate Blood Pressure 115/66 O2 Sat by Pulse 98 Oximetry Medical Decision Making <Susi Joshi - Last Filed: 07/10/23 13:41> <Paul Taylor - Last Filed: 07/10/23 14:37> - Medical Decision Making I performed the QuickNote portion of this chart. Signed Susi Joshi PA-C. (Susi Joshi) Was pt. sent in by a medical professional or institution (BERNADINE Mcknight, FLIGHT TEST DATA ACQUISITION TECHNICIAN, urgent care, hospital, or usp...) When possible be specific @ -No Did you speak to anyone other than the patient for history (EMS, parent, family, police, friend...)? What history was obtained from this source @ -No Did you review nursing and triage notes (agree or disagree)? Why? @ -I reviewed and agree with nursing and triage notes Were old charts reviewed (outside hosp., previous admission, EMS record, old EKG, old radiological studies, urgent care reports/EKG's, usp records)? Report findings @ -No old charts were reviewed Differential Diagnosis (chest pain, altered mental status, abdominal pain women, abdominal pain men, vaginal bleeding, weakness, fever, dyspnea, syncope, headache, dizziness, GI bleed, back pain, seizure, CVA, palpatations, mental health, musculoskeletal)? @ -Strep throat, viral pharyngitis, postnasal drip, mononucleosis EKG interpreted by me (3pts min.). @ -As above X-rays interpreted by me (1pt min.). @ -None done CT interpreted by me (1pt min.). @ -None done U/S interpreted by me (1pt. min.). @ -None done What testing was considered but not performed or refused? (CT, X-rays, U/S, labs)? Why? @ -None What meds were considered but not given or refused? Why? @ -None Did you discuss the management of the patient with other professionals (professionals i.e. , BERNADINE, FLIGHT TEST DATA ACQUISITION TECHNICIAN, lab, RT, psych nurse, child protective services social worker, commercial leasing manager, teacher, intelligence support officer, manager rn case)? Give summary @ -No Was smoking cessation discussed for >3mins.? @ -No Was critical care preformed (if so, how long)? @ -No Were there social determinants of health that impacted care today? How? (Homelessness, low income, unemployed, alcoholism, drug addiction, transportation, low edu. Level, literacy, decrease access to med. care, fdc, rehab)? @ -No Was there de-escalation of care discussed even if they declined (Discuss DNR or withdrawal of care, Hospice)? DNR status @ -No What co-morbidities impacted this encounter? (DM, HTN, Smoking, COPD, CAD, Cancer, CVA, ARF, Chemo, Hep., AIDS, mental health diagnosis, sleep apnea, morbid obesity)? @ -None Was patient admitted / discharged? Hospital course, mention meds given and route, prescriptions, significant lab abnormalities, going to OR and other pertinent info. @ -Test for RSV influenza A and influenza B and COVID were all negative. Patient's strep test was also negative however her throat was significant swollen red I will start the patient on antibiotics. Undiagnosed new problem with uncertain prognosis? @ -No Drug Therapy requiring intensive monitoring for toxicity (Heparin, Nitro, Insulin, Cardizem)? @ -No Were any procedures done? @ -No Diagnosis/symptom? @ -Strep pharyngitis Acute, or Chronic, or Acute on Chronic? @ -Acute Uncomplicated (without systemic symptoms) or Complicated (systemic symptoms)? @ -Complicated Side effects of treatment? @ -No Exacerbation, Progression, or Severe Exacerbation? @ -No Poses a threat to life or bodily function? How? (Chest pain, [place], [place], pneumonia, PE, COPD, DKA, ARF, appy, cholecystitis, CVA, Diverticulitis, Homicidal, Suicidal, threat to staff... and all critical care pts) @ -No (Paul Taylor) - Lab Data Lab Results 07/10/23 07/10/23 Range/Units 13:37 13:37 Influenza Type A (PCR) Not Detected (Not Detectd) Influenza Type B (PCR) Not Detected (Not Detectd) RSV (PCR) Not Detected (Not Detectd) SARS-CoV-2 (PCR) Not Detected (Not Detectd) Group A Strep (PCR) NOT DETECTED (Not Detectd) Disposition <Susi Joshi - Last Filed: 07/10/23 13:41> Is patient prescribed a controlled substance at d/c from ED?: No Time of Disposition: 14:37 <Paul Taylor - Last Filed: 07/10/23 14:37> Clinical Impression: Strep pharyngitis Disposition: HOME SELF-CARE Instructions (If sedation given, give patient instructions): Strep Throat (ED) Prescriptions: Amoxicillin 500 mg PO Q8H #30 capsule Referrals: Sami Foster DO [Primary Care Provider] - 1-2 days
== END 2023-07-10 14:46 | disposition home or self-care (01) ==
LOC: EC 13:21
DX: J02.0 Streptococcal pharyngitis (principal); F12.90 Cannabis use, unspecified, uncomplicated; F17.200 Nicotine dependence, unspecified, uncomplicated; Z90.49 Acquired absence of other specified parts of digestive tract; Z20.822 Contact with and (suspected) exposure to COVID-19
CPT/HCPCS: 87636; 87651; 99283

== ENCOUNTER 2023-08-29 15:46 | Emergency (ER) | payer OTHER ==
[2023-08-29 16:25] VITALS: RESP 18
--- NOTE | 2023-08-29 16:56 | ED ---
General Adult HPI - General Chief complaint: Upper Respiratory Infection Stated complaint: weakness/sore throat Time Seen by Provider: 08/29/23 16:14 Source: patient, RN notes reviewed Mode of arrival: ambulatory Limitations: no limitations - History of Present Illness Initial comments: 28-year-old female presents to the emergency department for evaluation of sore throat, sneezing x 2 days. She states that she has not been coughing. She reports some nausea with vomiting yesterday. Has not had any vomiting today but reports continued nausea. Does admit to fever. Her daughter has similar symptoms. She is otherwise healthy and takes no daily medications. No known medication allergies. - Related Data Previous Rx's Medication Instructions Recorded Acetaminophen-Codeine 300-30mg 1 tab PO Q4H PRN #10 tablet 03/16/17 [Tylenol #3] Ondansetron Odt [Zofran Odt] 4 mg PO Q8HR PRN #10 tab 03/16/17 Acetaminophen [Tylenol] 500 mg PO Q4-6H PRN #24 tab 10/27/21 Amoxicillin/Potassium Clav 1 each PO Q12HR #14 tab 10/27/21 [Augmentin 875-125 Tablet] Amoxicillin 500 mg PO Q8H #30 capsule 07/10/23 Oseltamivir [Tamiflu] 75 mg PO Q12HR #10 cap 08/29/23 Allergies Allergy/AdvReac Type Severity Reaction Status Date / Time No Known Allergies Allergy Verified 08/29/23 16:07 Review of Systems ROS Statement: Those systems with pertinent positive or pertinent negative responses have been documented in the HPI. ROS Other: All systems not noted in ROS Statement are negative. Past Medical History Past Medical History: GERD/Reflux History of Any Multi-Drug Resistant Organisms: None Reported Past Surgical History: Cholecystectomy Past Anesthesia/Blood Transfusion Reactions: No Reported Reaction Past Psychological History: No Psychological Hx Reported Smoking Status: Current every day smoker Past Alcohol Use History: Occasional Past Drug Use History: Marijuana - Past Family History Father Family Medical History: Cancer General Exam Limitations: no limitations General appearance: alert, in no apparent distress Head exam: Present: atraumatic, normocephalic, normal inspection Eye exam: Present: normal appearance, PERRL, EOMI. Absent: scleral icterus, conjunctival injection, periorbital swelling ENT exam: Present: normal exam, mucous membranes moist Neck exam: Present: normal inspection. Absent: tenderness, meningismus, lymphadenopathy Respiratory exam: Present: normal lung sounds bilaterally. Absent: respiratory distress, wheezes, rales, rhonchi, stridor Cardiovascular Exam: Present: regular rate, normal rhythm, normal heart sounds. Absent: systolic murmur, diastolic murmur, rubs, gallop, clicks GI/Abdominal exam: Present: soft, normal bowel sounds. Absent: distended, tenderness, guarding, rebound, rigid Extremities exam: Present: normal inspection, full ROM, normal capillary refill. Absent: tenderness, pedal edema, joint swelling, calf tenderness Back exam: Present: normal inspection Neurological exam: Present: alert, oriented X3 Psychiatric exam: Present: normal affect, normal mood Skin exam: Present: warm, dry, intact, normal color. Absent: rash Course Vital Signs 08/29/23 08/29/23 16:03 19:06 Temperature 100.0 F H 99.2 F Pulse Rate 110 H 79 Respiratory 18 18 Rate Blood Pressure 119/73 98/57 O2 Sat by Pulse 96 97 Oximetry Medical Decision Making - Medical Decision Making Was pt. sent in by a medical professional or institution (, PA, BILLET [employer], urgent care, hospital, or snf...) When possible be specific @ -No Did you speak to anyone other than the patient for history (EMS, parent, family, police, friend...)? What history was obtained from this source @ -No Did you review nursing and triage notes (agree or disagree)? Why? @ -I reviewed and agree with nursing and triage notes Were old charts reviewed (outside hosp., previous admission, EMS record, old EKG, old radiological studies, urgent care reports/EKG's, snf records)? Report findings @ -No old charts were reviewed Differential Diagnosis (chest pain, altered mental status, abdominal pain women, abdominal pain men, vaginal bleeding, weakness, fever, dyspnea, syncope, headache, dizziness, GI bleed, back pain, seizure, CVA, palpatations, mental health, musculoskeletal)? @ -Differential Fever: Pneumonia, viral URI, endocarditis, myocarditis, pericarditis, otitis, sinusitis, peritonsillar Abscess, retropharyngeal Abscess, epiglottitis, peritonitis, appendicitis, Ines cystitis, diverticulitis, hepatitis, colitis, UTI, PID, TOA, pyelonephritis, prostatitis, epididymitis, meningitis, encephalitis, pulmonary embolism, CVA, thyroid storm, pancreatitis, adrenal crisis, cavernous sinus thrombosis, this is not meant to be an all-inclusive list. EKG interpreted by me (3pts min.). @ -None X-rays interpreted by me (1pt min.). @ -None done CT interpreted by me (1pt min.). @ -None done U/S interpreted by me (1pt. min.). @ -None done What testing was considered but not performed or refused? (CT, X-rays, U/S, labs)? Why? @ -None What meds were considered but not given or refused? Why? @ -None Did you discuss the management of the patient with other professionals (professionals i.e. , PA, B[employer], lab, RT, psych nurse, social science instructor, control equipment electrician, teacher, aoc airspace control officer, onsite case manager)? Give summary @ -No Was smoking cessation discussed for >3mins.? @ -No Was critical care preformed (if so, how long)? @ -No Were there social determinants of health that impacted care today? How? (Homelessness, low income, unemployed, alcoholism, drug addiction, transportation, low edu. Level, literacy, decrease access to med. care, halfway, rehab)? @ -No Was there de-escalation of care discussed even if they declined (Discuss DNR or withdrawal of care, Hospice)? DNR status @ -No What co-morbidities impacted this encounter? (DM, HTN, Smoking, COPD, CAD, Cancer, CVA, ARF, Chemo, Hep., AIDS, mental health diagnosis, sleep apnea, morbid obesity)? @ -None Was patient admitted / discharged? Hospital course, mention meds given and route, prescriptions, significant lab abnormalities, going to OR and other pe rtinent info. @ -Discharged. Patient presented to the emergency department for evaluation of nausea, vomiting, sore throat, fever x1 day. Patient's daughter has the same symptoms. Patient tested positive for influenza B. Given Zofran and a Zofran starter pack. Patient also given a dose of Tylenol for fever. Patient will be discharged home advised to utilize symptomatic treatment including Tylenol Motrin for fever and muscle aches. Utilize her Zofran as needed for nausea. Patient understanding agreeable with plan. Patient stable at time of discharge. Case discussed with Dr. Taylor Undiagnosed new problem with uncertain prognosis? @ -No Drug Therapy requiring intensive monitoring for toxicity (Heparin, Nitro, Insulin, Cardizem)? @ -No Were any procedures done? @ -No Diagnosis/symptom? @ -Influenza b Acute, or Chronic, or Acute on Chronic? @ -acute Uncomplicated (without systemic symptoms) or Complicated (systemic symptoms)? @ -uncomplicated Side effects of treatment? @ -No Exacerbation, Progression, or Severe Exacerbation? @ -No Poses a threat to life or bodily function? How? (Chest pain, USA, PA, pneumonia, PE, COPD, DKA, ARF, appy, cholecystitis, CVA, Diverticulitis, Homicidal, Suicidal, threat to staff... and all critical care pts) @ -No - Lab Data Lab Results 08/29/23 08/29/23 Range/Units 16:15 16:15 Influenza Type A (PCR) Not Detected (Not Detectd) Influenza Type B (PCR) Detected A (Not Detectd) RSV (PCR) Not Detected (Not Detectd) SARS-CoV-2 (PCR) Not Detected (Not Detectd) Group A Strep (PCR) NOT DETECTED (Not Detectd) Disposition Clinical Impression: Influenza Disposition: HOME SELF-CARE Condition: Stable Instructions (If sedation given, give patient instructions): Influenza (ED) Additional Instructions: Please follow up with your PCP. Return to the emergency department for new or worsening symptoms. Prescriptions: Oseltamivir [Tamiflu] 75 mg PO Q12HR #10 cap Is patient prescribed a controlled substance at d/c from ED?: No Referrals: None,Stated [Primary Care Provider] - 1-2 days Forms: Work/School Release
[2023-08-29] MEDS: ONDANSETRON 4 MG ODT STARTER PACK 2 TAB BTL PO STA (17:11)
[2023-08-29] MEDS: ACETAMINOPHEN TAB 500 MG TAB PO STA (17:11)
[2023-08-29] MEDS: ONDANSETRON ODT 4 MG TAB PO STA (17:12)
[2023-08-29 19:15] VITALS: BP 98/57; PULSE 79; TEMP 99.2
== END 2023-08-29 19:07 | disposition home or self-care (01) ==
LOC: EC 15:46
DX: J10.1 Influenza due to other identified influenza virus with other respiratory manifestations (principal); F17.200 Nicotine dependence, unspecified, uncomplicated; F12.90 Cannabis use, unspecified, uncomplicated; Z20.822 Contact with and (suspected) exposure to COVID-19
CPT/HCPCS: 87651; 87636; 99284; S0119